=== PATIENT | female | born 1945 | race Caucasian/White ===

== ENCOUNTER 2017-04-06 21:48 | Inpatient (IN) | payer OTHER ==
[~2017-04-06] VITALS: Ht 154.9 cm; Wt 96.6 kg
[2017-04-06 23:09] LABS: HEMATOCRIT 42.8 % (36.0-46.0); MCH 29.5 PG (29.0-34.0); MCHC 33.4 G/DL (30.0-36.0); MCV 88.4 FL (83-99); MEAN PLAT.VOLUME 12.1 uM^3 (9.5-12.4); PLATELET COUNT 180 K/uL (156-360); RBC DIS.WIDTH-CV 12.1 % (11.8-14.6); RBC DIS.WIDTH-SD 39.2 % (39-53); RED BLOOD COUNT 4.84 M/uL (3.80-5.20); WHITE BLOOD COUNT 14.2 K/uL (4.1-10.2)
[2017-04-06 23:23] LABS: CHLORIDE 101 mEq/L (99-109); POTASSIUM 3.1 mEq/L (3.7-5.4); SODIUM 139 mEq/L (136-147)
[2017-04-06 23:25] LABS: GLUCOSE 167 mg/dL (70-99)
[2017-04-06 23:26] LABS: ANION GAP 10 MEQ/L (2-14)
[2017-04-06 23:27] LABS: TOTAL BILIRUBIN 1.7 mg/dL (0.0-1.0)
[2017-04-06 23:28] LABS: ALKALINE PHOSPHATASE 100 IU/L (3-129)
[2017-04-06 23:29] LABS: GFR ESTIMATE (CALCULATED) 58 mL/min/
[2017-04-06 23:30] LABS: UREA NITROGEN (BUN) 17 mg/dL (9-23)
[2017-04-06 23:32] LABS: LIPASE 18 U/L (1.0-51.0)
[2017-04-06 23:39] LABS: TROP-I INTERPRETATION NEGATIVE; TROPONIN-I < 0.01 ng/mL (0.0-0.30)
[2017-04-07 00:11] LABS: ADD MIUA? NO; BILIRUBIN NEGATIVE; BLOOD NEGATIVE; COLOR YELLOW ((YELLOW)); GLUCOSE (STRIP) 50; KETONES 5; LEUKOCYTES NEGATIVE; NITRITE NEGATIVE; PROTEIN (STRIP) NEGATIVE; SPECIFIC GRAVITY 1.015 (1.000-1.030); UCUL ADDED? NO; UROBILINOGEN 0.2 MG/DL (0.2-1.0)
[2017-04-07 02:43] VITALS: BP 142/58
[2017-04-07 08:53] VITALS: BP 133/63
[2017-04-07 11:45] LABS: POINT-OF-CARE METER ID UU13113725
[2017-04-07] MEDS ORDERED: ZESTORETIC 20-1 EAC1 PO (12:11)
[2017-04-07] MEDS ORDERED: AMLODIPINE BESY10 MG PO (12:12)
[2017-04-07 15:44] VITALS: BP 119/64
[2017-04-07 15:49] LABS: POINT-OF-CARE METER ID UU13113725
[2017-04-07 23:20] VITALS: BP 138/65
[2017-04-08 06:09] LABS: HEMATOCRIT 38.8 % (36.0-46.0); MCH 29.5 PG (29.0-34.0); MCHC 32.5 G/DL (30.0-36.0); MCV 90.9 FL (83-99); MEAN PLAT.VOLUME 11.8 uM^3 (9.5-12.4); PLATELET COUNT 164 K/uL (156-360); RBC DIS.WIDTH-CV 12.5 % (11.8-14.6); RBC DIS.WIDTH-SD 41.7 % (39-53); RED BLOOD COUNT 4.27 M/uL (3.80-5.20); WHITE BLOOD COUNT 6.3 K/uL (4.1-10.2)
[2017-04-08 06:36] LABS: INTER. NORMALIZED RATIO 1.1; PROTHROMBIN TIME 11.9 SEC (10.2-12.9)
[2017-04-08 06:39] LABS: PTT 30.6 SEC (25-37)
[2017-04-08 06:41] LABS: ANION GAP 4 MEQ/L (2-14); CHLORIDE 106 MEQ/L (99-109); GFR ESTIMATE (CALCULATED) > 59 mL/min/; SAMPLE HEMOLYSIS CHECK 0; SAMPLE ICTERIC CHECK 0; SAMPLE LIPEMIA CHECK 0; SODIUM 141 MEQ/L (136-147); UREA NITROGEN (BUN) 15 mg/dL (9-23)
[2017-04-08 06:44] LABS: GLUCOSE 113 mg/dL (70-99); POTASSIUM 4.1 MEQ/L (3.7-5.4)
[2017-04-08 08:16] VITALS: BP 198/83
[2017-04-08] MEDS ORDERED: FAMOTIDINE20 MG PO (12:53)
[2017-04-08] MEDS ORDERED: Zeasorb Antifungal T TP (12:53)
[2017-04-08] MEDS ORDERED: PERCOCET 7.51 TABLET PO (12:53)
== END 2017-04-08 14:29 | disposition home or self-care (01) | DRG 439 ==
LOC: EME → EDBD 21:48 → EDOF 04-07 01:24 → ENRESERV 04-07 01:33 → 5EAST 04-07 02:44
PROVIDERS: Emergency Medicine; Hospitalist; Internal Medicine
DX: K86.9 Disease of pancreas, unspecified (principal); E87.6 Hypokalemia; S22.20XA Unspecified fracture of sternum, initial encounter for closed fracture; K80.20 Calculus of gallbladder without cholecystitis without obstruction; W19.XXXA Unspecified fall, initial encounter; I10 Essential (primary) hypertension; E11.9 Type 2 diabetes mellitus without complications; K42.9 Umbilical hernia without obstruction or gangrene; D18.03 Hemangioma of intra-abdominal structures; Z72.0 Tobacco use; Z86.73 Personal history of transient ischemic attack (TIA), and cerebral infarction without residual deficits; Z91.81 History of falling
CPT/HCPCS: 71010; 74177; 74183; 80048; 80053; 81003; 82105 90; 82272; 82948; 83605; 83690; 84484; 85027; 85379; 85610; 85730; 86301 90; 87040; 93005; 94799; 99281; 99285; J1644; J2270; J2405; J3010; J3480; J7030

== ENCOUNTER → 2017-05-10 | Outpatient (CLI) | payer OTHER ==
[~2017-05-10] VITALS: Ht 154.9 cm; Wt 94.8 kg
[~2017-05-10] MED LIST: AMLODIPINE BESY10 MG PO; APPLE CIDER VI300 MG PO; ASCORBIC ACID500 M3 PO; FAMOTIDINE20 MG PO; MAGNESIUM100 MG PO; PERCOCET 7.51 TABLET PO; ZESTORETIC 20-1 EAC1 PO; Zeasorb Antifungal T TP
== END | disposition home or self-care (01) ==
LOC: AMB 07:57
DX: K86.89 Other specified diseases of pancreas (principal); K86.2 Cyst of pancreas; E78.5 Hyperlipidemia, unspecified; I10 Essential (primary) hypertension; K42.9 Umbilical hernia without obstruction or gangrene; R73.03 Prediabetes; Z86.73 Personal history of transient ischemic attack (TIA), and cerebral infarction without residual deficits; R10.9 Unspecified abdominal pain
CPT/HCPCS: 88173; 88305; 88342 TC; 93005; J0330; J0744; J3010

== ENCOUNTER 2017-06-07 08:17 | Day surgery (SDC) | payer OTHER ==
[~2017-06-07] VITALS: Ht 154.9 cm; Wt 96.2 kg
[~2017-06-07 08:17] MED LIST changes: +CALCIUM + D3 E1 EACH PO; +CENTRUM WOMEN1 EACH PO; +VITAMIN D-3 401 EACH PO; +VITAMIN E400 UNIT PO
[2017-06-07 09:15] VITALS: BP 185/82
[2017-06-07 12:05] VITALS: BP 132/59
[2017-06-07 13:10] VITALS: BP 135/53
== END 2017-06-07 13:10 | disposition home or self-care (01) ==
LOC: SDC 08:17
DX: H35.341 Macular cyst, hole, or pseudohole, right eye (principal); E78.1 Pure hyperglyceridemia; I10 Essential (primary) hypertension; Z86.73 Personal history of transient ischemic attack (TIA), and cerebral infarction without residual deficits; E66.01 Morbid (severe) obesity due to excess calories; Z68.41 Body mass index [BMI] 40.0-44.9, adult; L30.4 Erythema intertrigo; K59.00 Constipation, unspecified; Z91.19 Patient's noncompliance with other medical treatment and regimen
CPT/HCPCS: J0690; J0713; J2250; J2405; J3010; J3300